=== PATIENT | male | born 1995 | race Asian ===

== ENCOUNTER → 2021-11-15 | Outpatient (CLI) | payer SELFPAY ==
--- NOTE | 2021-11-15 16:03 | Diagnostic Imaging Report ---
INDICATION: Positive TB skin test. EXAM: PA chest at 4:07 PM Heart and mediastinum are normal. Lungs are clear. There are no effusions or pneumothoraces. IMPRESSION: No acute abnormalities in the chest. Dictated by: Dictated on workstation # [id number]
== END ==
LOC: RAD 15:32
PROVIDERS: ATTEND Nurse Practitioner Family
DX: Z11.1 Encounter for screening for respiratory tuberculosis (principal); R76.11 Nonspecific reaction to tuberculin skin test without active tuberculosis
CPT/HCPCS: 71045